=== PATIENT | female | born 1965 | race Hispanic/Latino ===

== ENCOUNTER 2017-12-18 06:07 | Day surgery (SDC) | payer BC ==
[~2017-12-18] VITALS: Ht 162.6 cm; Wt 77.6 kg
[~2017-12-18 06:07] MED LIST: ASPI-555 PO; ATOR10TA69 PO; LEVO112T7 PO; SERT50TA12 PO; TRIA1TAB3 PO
[2017-12-18] MEDS ORDERED: SODIUM CHLORIDE 0.9% 1000ML 1,000 ML IV ONE (06:50)
[2017-12-18 07:09] VITALS: BP 113/65
[2017-12-18 08:54] VITALS: BP 80/39
== END 2017-12-18 09:20 | disposition home or self-care (01) ==
LOC: DAH 06:07
PROVIDERS: ATTEND Internal Medicine Gastroenterology
DX: Z12.11 Encounter for screening for malignant neoplasm of colon (principal); E78.5 Hyperlipidemia, unspecified; E11.9 Type 2 diabetes mellitus without complications; E03.9 Hypothyroidism, unspecified; I10 Essential (primary) hypertension; F32.9 Major depressive disorder, single episode, unspecified; Z98.890 Other specified postprocedural states; Z82.49 Family history of ischemic heart disease and other diseases of the circulatory system; Z83.3 Family history of diabetes mellitus; Z79.899 Other long term (current) drug therapy; Z68.34 Body mass index [BMI] 34.0-34.9, adult; K56.2 Volvulus; K76.0 Fatty (change of) liver, not elsewhere classified
CPT/HCPCS: 45378; 82948 ×2; A4606; J7030